=== PATIENT | female | born 1980 | race Two or more races ===

== ENCOUNTER 2023-11-10 15:21 | Emergency (ER) | payer MEDICAID ==
[~2023-11-10] VITALS: Ht 160 cm; Wt 63.0 kg
[2023-11-10 15:37] VITALS: BP 134/74; PULSE 67; RESP 16; O2SAT 99
[2023-11-10] MEDS ORDERED: CYCL-839 PO (17:20)
[2023-11-10] MEDS ORDERED: IBUP1TAB5 PO (17:20)
[2023-11-10] MEDS: DexAMETHasone SOD PHOS 10MG/1ML VIAL INJ IM ONE (17:42)
[2023-11-10] MEDS: HYDROcodone-ACET 5/325MG TAB PO ONE (17:42)
== END 2023-11-10 17:51 | disposition home or self-care (01) ==
LOC: ER 15:21
DX: S29.011A Strain of muscle and tendon of front wall of thorax, initial encounter (principal); Z79.1 Long term (current) use of non-steroidal anti-inflammatories (NSAID); Z79.899 Other long term (current) drug therapy; Z88.0 Allergy status to penicillin; X58.XXXA Exposure to other specified factors, initial encounter; Y93.89 Activity, other specified; Y92.89 Other specified places as the place of occurrence of the external cause; Y99.8 Other external cause status
CPT/HCPCS: 71111; 96372; 99283; J1100